=== PATIENT | female | born 1990 | race Hispanic/Latino ===

== ENCOUNTER 2018-11-21 08:05 | Outpatient (CLI) | payer OTHER ==
--- NOTE | 2018-11-21 09:05 | ULT ---
TRANSABDOMINAL PELVIC ULTRASOUND WITH GRAYSCALE AND COLOFLOW AND SPECTRAL DOPPLER IMAGING: HISTORY: A 28-year-old female with pelvic pain. FINDINGS: The uterus measures 8.5 x 6.7 x 4.5 cm without focal mass or endometrial fluid. The endometrium indira ures 8 mm in thickness. The right ovary measures 2.5 x 2.9 x 2.7 cm, and the left ovary measures 3 x 1.9 x 1.7 cm. Flow is demonstrated to both ovaries. No adnexal mass or free fluid in the cul-de-sa c is identified. IMPRESSION: Normal examination. POS: OFF
== END 2018-11-21 08:06 | disposition home or self-care (01) ==
LOC: SCSULT 08:05
PROVIDERS: ATTEND Nurse Practitioner
DX: N83.201 Unspecified ovarian cyst, right side (principal)
CPT/HCPCS: 76856; 93976

== ENCOUNTER 2020-01-09 04:43 | Inpatient (IN) | payer OTHER ==
[2020-01-09 05:26] VITALS: BMI 26.2
[2020-01-09] MEDS ORDERED: Promethazine HCl 25 MG/ML VIAL IM PRN (05:50)
[2020-01-09] MEDS ORDERED: Butorphanol Tartrate 1 MG/ML VIAL SLOW IVP PRN (05:50)
[2020-01-09] MEDS ORDERED: Ondansetron PF 4 MG/2 ML Vial IVP PRN (05:50)
[2020-01-09] MEDS ORDERED: Diphenoxylate HCl/Atropine Tablet PO PRN (06:00)
[2020-01-09] MEDS ORDERED: Lidocaine 1% (PF) 30 ML VIAL SC PRN (06:00)
[2020-01-09] MEDS ORDERED: Methylergonovine 0.2 MG/ML VIAL IM PRN ×2 (06:00→14:47)
[2020-01-09] MEDS ORDERED: Carboprost 250 MCG/ML AMP IM PRN (06:00)
[2020-01-09] MEDS ORDERED: NS w/ Oxytocin 10 units 500 ML IV SCH ×2 (06:00)
[2020-01-09] MEDS ORDERED: NS / Oxytocin 40 units/1000ml 1,000 ML IV SCH ×2 (06:00→14:47)
[2020-01-09] MEDS ORDERED: Misoprostol 200 MCG TAB RC PRN (06:00)
[2020-01-09 06:03] LABS: Hemoglobin 13.6 g/dL (12.0-16.0); Mean Corpuscular HGB CONC 34.4 g/dL (32.0-36.0); Mean Corpuscular Hemoglobin 30.3 pg (27.0-31.0); Mean Platelet Volume 9.7 fL (7.4-10.4); Platelet Count 144 thou/uL (130-400); RBC Distribution Width 14.8 % (11.5-14.5); White Blood Cell (WBC) Count 9.5 thou/uL (4.8-10.8)
[2020-01-09 06:36] LABS: HBSAg Index 0.13 S/CO (0-0.99); Hep B Surf Ag Non-Reactive S/CO (NonReactive); Syphilis Antibody Nonreactive (Nonreactive); Syphilis Antibody Index 0.04 S/CO (<1.00 Non-Reactive)
--- NOTE | 2020-01-09 07:50 | PDOC.LDHP ---
Labor and Delivery H&P Chief complaint: contractions HPI: Patient arrives to the hospital at 5am with complaints of contractions Current gestational age (weeks): 40 Due date: 01/07/20 Dating criteria: last menstrual period Grav: 3 Para: 1 OB History Details: 2017. 38 4lbs 12 oz 2019 SAB Current medications: pre- vitamins Previous surgical history: other (finger surgery) Allergies/Adverse Reactions: Allergies Allergy/AdvReac Type Severity Reaction Status Date / Time amoxicillin Allergy Intermediate Rash Verified 01/09/20 05:19 Penicillins Allergy Intermediate Rash Verified 01/09/20 05:19 Social history: none - Physical Exam Vital signs reviewed and normal: yes General: breathing through contractions Lungs: nonlabored breathing Abdomen: gravid FHT: category 1 - Vaginal Exam cm dilated: 5 Effacement: 100% Station: -1 - OB Labs Blood type: A RH: positive Antibody Screen: negative HIV: negative RPR: negative HEPSAg: negative 1 hour GCT: negative GBS: negative Urine drug screen: positive (on Admission. then negative) Rubella: immune - Assessment L&D Assessment: term patient in labor - Plan Plan: admit to L&D, anesthesia consult for pain management
--- NOTE | 2020-01-09 11:14 | PDOC.LDPN ---
Labor & Delivery Progress Note - Subjective Subjective: painful contractions, vaginal pressure - Objective General: breathing through contractions Uterine fundus: non tender Dilation: 6 Effacement: 100% Station: 0 FHT: category 1, early decelerations AROM: clear fluid Resuscitative measures: maternal position change - Assessment (1) 40 weeks gestation of Code(s): Z3A.40 - 40 WEEKS GESTATION OF Current Visit: Yes Status : Acute Plan: continue plan of care
[2020-01-09] MEDS ORDERED: Oxytocin 10 UNITS/ML VIAL ONE (12:23)
--- NOTE | 2020-01-09 12:58 | PDOC.OPDEL ---
OB Operative/Delivery Note Delivery Dr/Surgeon: Light. Monterroso Pre-Delivery Diagnosis: active labor Procedure/Post Delivery Dx: spontaneous vaginal delivery Weeks gestation: 40 Anesthesia: none - Findings A Sex: female - 1 min: 8 - 5 min: 9 - Additional Findings/Plan Placenta delivered: spontaneous Repaired Obstetrical Laceration: none Compilations/Other Findings: Bradycardic before delivery. Post delivery plan: routine recovery
[2020-01-09] MEDS ORDERED: Milk Of Magnesia 30 ML UDCUP PO PRN (14:47)
[2020-01-09] MEDS ORDERED: Adacel (T-DAP) 0.5 ML SYRINGE IM ONE (14:47)
[2020-01-09] MEDS ORDERED: hydrALAZINE 20 MG/ML VIAL SLOW IVP PRN (14:47)
[2020-01-09] MEDS ORDERED: HYDROcodone/Acetaminophen 5/325 mg Tablet PO PRN ×2 (14:47)
[2020-01-09] MEDS ORDERED: Benzocaine-Menthol 82.5 ML CAN TOP PRN (14:47)
[2020-01-09] MEDS ORDERED: Misoprostol 200 MCG TAB VAG PRN (14:47)
[2020-01-09] MEDS ORDERED: Bisacodyl 10 MG SUPP PR PRN (14:47)
[2020-01-09] MEDS: Ibuprofen 800 MG TAB PO SCH ×2 (16:25→22:38)
[2020-01-09] MEDS: Ferrous Sulfate 325 MG TAB PO SCH (16:56)
[2020-01-09] MEDS: Docusate Calcium (SURFAK) 240 MG CAP PO SCH (21:17)
[2020-01-10] MEDS: Ibuprofen 800 MG TAB PO SCH ×2 (06:31→12:30)
[2020-01-10] MEDS: Ferrous Sulfate 325 MG TAB PO SCH (07:31)
[2020-01-10] MEDS: Docusate Calcium (SURFAK) 240 MG CAP PO SCH (08:11)
[2020-01-10] MEDS ORDERED: Prenatal Vitamin 1 TAB PO SCH (09:00)
[2020-01-10 11:43] VITALS: BP 105/55; TEMP 98.6
[2020-01-10] MEDS ORDERED: Lanolin Ointment 7 GM TUBE TOP PRN (12:15)
== END 2020-01-10 16:05 | disposition home or self-care (01) | DRG 807 ==
LOC: L&D/OP 04:43 → L&D-LIB 05:27 → 3SW 16:17
PROVIDERS: ADMIT Obstetrics & Gynecology; ATTEND Obstetrics & Gynecology
PROC: 10E0XZZ Delivery of Products of Conception, External Approach (ICD-10-PCS; principal; 2020-01-09)
DX: O76 Abnormality in fetal heart rate and rhythm complicating labor and delivery (principal); Z37.0 Single live birth; Z3A.40 40 weeks gestation of pregnancy
CPT/HCPCS: 36415; 85027; 86780; 86850; 86900; 86901; 87340; 99285; J2405; J2590